=== PATIENT | male | born 1950 | race Caucasian/White ===

== ENCOUNTER 2016-11-19 10:54 | Inpatient (IN) | payer MEDICARE ==
[2016-11-19] MEDS ORDERED: Succinylcholine* 20 MG/ML 10 ML VIAL ONE (11:05)
[2016-11-19] MEDS ORDERED: Etomidate* 2 MG/ML 10 ML VIAL ONE (11:05)
[2016-11-19] MEDS ORDERED: NS 0.9% 1000 ML* 1,000 ML IV ONE (11:10)
[2016-11-19] MEDS ORDERED: NS 0.9% 1000 ML* 2,000 ML IV ONE (11:15)
[2016-11-19] MEDS ORDERED: Aspirin SUPP* 300 MG ONE (11:26)
[2016-11-19] MEDS ORDERED: Aspirin TAB* 325 MG NG TUBE ONE (11:26)
[2016-11-19 11:27] LABS: Hematocrit 42 % (42-52); Hemoglobin 12.2 g/dl (14.0-18.0); Mean Corpuscular HGB Conc 29 g/dl (31-36); Mean Corpuscular Hemoglobin 29 pg (27-31); Mean Corpuscular Volume 98 fL (80-94); Mean Platelet Volume 9 um3 (7.4-10.4); Red Blood Count 4.26 10^6/ul (4.0-5.4); Red Cell Distribution Width 17 % (10.5-15); White Blood Count 12.4 10^3/ul (3.5-10.8)
[2016-11-19] MEDS ORDERED: Heparin for STEMI(*) 5,000 UNITS/ML 1 ML VIAL IV ONE (11:28)
[2016-11-19] MEDS ORDERED: Clopidogrel TAB* 300 MG ONE (11:30)
[2016-11-19] MEDS ORDERED: Norepinephrine 16MCG/ML IVPRE* 4,000 MCG/250 ML BAG IV ONE (11:31)
[2016-11-19 11:34] LABS: Add Diff/Slide Review? Slide Review Added; Comments Flag Yes
[2016-11-19 11:35] LABS: ALT 17 U/L (7-52); AST 16 U/L (13-39); Albumin 4.1 g/dL (3.2-5.2); Alkaline Phosphatase 73 U/L (34-104); BUN/Creatinine Ratio 16.2 (8-20); Blood Urea Nitrogen 39 mg/dL (6-24); CO2 Carbon Dioxide 33 mmol/L (22-32); Calcium 8.7 mg/dL (8.6-10.3); Chloride 97 mmol/L (101-111); EGFR African American 34.7 (>60); Globulin 3.5 g/dL (2-4); Glucose 343 mg/dL (70-100); Magnesium 2.5 mg/dL (1.9-2.7); Sodium 135 mmol/L (133-145); Total Protein 7.6 g/dL (6.4-8.9)
[2016-11-19] MEDS ORDERED: Albuterol (2.5 MG) 0.5 % CONC 2.5 MG/0.5 ML NEB.SOLN (ICU and ED only) INH ONE (11:36)
[2016-11-19] MEDS ORDERED: Insulin REGULAR(*) 1 UNITS UNIT IV PUSH ONE (11:36)
[2016-11-19] MEDS ORDERED: Dextrose 25% PED SYRINGE 10ml IV ONE (11:36)
[2016-11-19 11:37] LABS: Anion Gap 5 mmol/L (2-11); Potassium 7.8 mmol/L (3.5-5.0)
[2016-11-19] MEDS ORDERED: Sodium Polystyrene ORAL.SOL* 15 GM/60 ML BTL NG TUBE ONE (11:39)
[2016-11-19] MEDS ORDERED: Levofloxacin 500 MG IVPREMIX(* 500 MG/100 ML BAG IVPB ONE (11:41)
[2016-11-19] MEDS ORDERED: fentaNYL* 50 MCG/ML 2 ML VIAL (100 MCG VIAL) ONE (11:42)
[2016-11-19] MEDS ORDERED: Midazolam* 1 MG/ML 5 ML VIAL (5 MG) ONE (11:42)
[2016-11-19 11:43] LABS: Troponin I 0.65 ng/mL (<0.04)
[2016-11-19] MEDS ORDERED: Heparin 2 UNITS/ML IVPREMIX* 1,000 ML IV ONE (11:43)
[2016-11-19] MEDS ORDERED: Iohexol 350 (CONTRAST) 200 ML MDV IV ONE (11:43)
[2016-11-19] MEDS ORDERED: Heparin(*) 1000 UNIT/ML 10 ML VIAL CATH LAB IV ONE (11:43)
[2016-11-19] MEDS ORDERED: VERAPAMIL 2.5 MG/ML 4 ML VIAL ONE (11:43)
[2016-11-19] MEDS ORDERED: Lidocaine 1% INJ* 10 MG/ML 30 ML SDV ONE (11:43)
[2016-11-19] MEDS ORDERED: nitroGLYCERIN DRIP* 0 ML ONE (11:43)
[2016-11-19] MEDS ORDERED: Iodixanol* (CONTRAST) 320 MG/ML 100 ML SDV ONE (11:45)
[2016-11-19] MEDS ORDERED: Dextrose 50% Syringe 50 ML* 25 GM/50 ML SYRINGE ONE (11:46)
[2016-11-19] MEDS ORDERED: Dextrose 50% Syringe 50 ML* 25 GM/50 ML SYRINGE IV PUSH ONE (11:50)
[2016-11-19 11:53] LABS: Acetaminophen < 15 mcg/mL; Alcohol < 10 mg/dL (<10); Salicylate < 2.50 mg/dL (<30)
[2016-11-19 12:03] LABS: TSH (Thyroid Stimulating Horm) 4.61 mcIU/mL (0.34-5.60)
--- NOTE | 2016-11-19 12:07 | RAD ---
INDICATION: Endotracheal tube confirmation. COMPARISON: Comparison is made with a prior chest x-ray study from December 11, 2013. TECHNIQUE: A portable view of the chest was obtained. FINDINGS: There is an endotracheal tube which projects over the midline. The catheter tip appears to be at the level of the clavicle heads. There is a nasogastric tube which is faintly visualized. The distal portion projects in the left upper quadrant. The heart is enlarged and unchanged from the prior exam. The lungs are underinflated and grossly clear. The right costophrenic angle is cut off on the film limiting the study. IMPRESSION: 1. STATUS POST INTUBATION AND NASOGASTRIC TUBE PLACEMENT. 2. CARDIOMEGALY, UNCHANGED.
[2016-11-19] MEDS ORDERED: Insulin REGULAR(*) 1 UNITS UNIT ONE (12:23)
[2016-11-19 12:33] LABS: Urine Bacteria Absent (Absent); Urine Bilirubin Negative (Negative); Urine Glucose 2+(150 mg/dL) (Negative); Urine Nitrite Negative (Negative)
--- NOTE | 2016-11-19 14:11 | ED ---
Smiley Lemus Auryana, scribed for Mason Rodriguez MD on 11/19/16 at 1115 . Respiratory - HPI Summary HPI Summary: 66 year old male BIBA unresponsive s/p witnessed fall . Per family, patient was sitting in chair A&O, when he started to foam at the mouth, fell, and became unresponsive. On EMS arrival, patient was not breathing but had a pulse and pinpoint pupils - given Narcan 2mg with no improvement. Per EMS, patient does have some spontaneous muscle movement. PMHx is significant for COPD, CAD/SD with stent placement 2005, DM, and chronic pain - opiate pain management but no history of stoke or seizure. Patient is a level 5 caveat due to unresponsiveness. - History of Current Complaint Stated Complaint: ABC ALERT Time Seen by Provider: 11/19/16 10:55 Hx Obtained From: Family/Dot Compliance Specialist, EMS Hx From Patient Unobtainable Due To: Other - Patient is a level 5 caveat due to unresponsiveness. Onset/Duration: Sudden Onset, Still Present Initial Severity: Severe Current Severity: Severe - Allergy/Home Medications Allergies/Adverse Reactions: Allergies Allergy/AdvReac Type Severity Reaction Status Date / Time Penicillins Allergy Unknown Unknown Verified 12/05/13 10:00 Reaction Details PMH/Surg Hx/FS Hx/Imm Hx Previously Healthy: No - Patient is a level 5 caveat due to unresponsiveness. Endocrine/Hematology History: Reports: Hx Diabetes Cardiovascular History: Reports: Hx Congestive Heart Failure, Hx Coronary Artery Disease, Hx Hypercholesterolemia, Hx Hypertension, Hx Myocardial Infarction, Hx Peripheral Vascular Disease, Other Cardiovascular Problems/ Disorders - CAD W/STENTS Respiratory History: Reports: Hx Chronic Obstructive Pulmonary Disease (COPD) Musculoskeletal History: Reports: Hx Arthritis Sensory History: Denies: Hx Contacts or Glasses Opthamlomology History: Denies: Hx Contacts or Glasses - Surgical History Surgery Procedure, Year, and Place: left knee replacement. stent placement s/p cardiac arrest 2013 Infectious Disease History: Denies: Traveled Outside the [place] in Last 30 Days - Family History Known Family History: Positive: Diabetes Family History: Patient is a level 5 caveat due to unresponsiveness. - Social History Alcohol Use: None Hx Substance Use: No Substance Use Type: Reports: None Hx Tobacco Use: Yes Smoking Status (MU): Former Smoker Review of Systems - ROS Summary Review of Systems Summary: Patient is a level 5 caveat due to unresponsiveness. Positive: Other - foaming at mouth Positive: Other - pinpoint pupils Positive: Other - apnea All Other Systems Reviewed And Are Negative: No Physical Exam - Summary Physical Exam Summary: Vital signs: reviewed General: Patient is abese male who is being baged. He is unresponsive. HEENT: Pupils are pin point. Patient has an LMA. Lungs: ecreased breath sound b/l CVS: S1 & S2 present. No murmurs appreciated. ABDOMEN: Soft, obese distended decreae BS. EXTREMITIES: Positive 1+ edema NEURO: Unresponsive SKIN: Dry and warm Triage Information Reviewed: Yes Vital Signs Reviewed: Yes Completion Of Physical Exam Limited Due To: Other - Patient is a level 5 caveat due to unresponsiveness. Diagnostics - Laboratory Lab Results: Lab Results 11/19/16 11/19/16 11/19/16 Range/Units 11:00 11:00 11:00 WBC 12.4 H (3.5-10.8) 10^3/ul RBC 4.26 (4.0-5.4) 10^6/ul Hgb 12.2 L (14.0-18.0) g/dl Hct 42 (42-52) % MCV 98 H (80-94) fL MCH 29 (27-31) pg MCHC 29 L (31-36) g/dl RDW 17 H (10.5-15) % Plt Count 249 (150-450) 10^3/ul MPV 9 (7.4-10.4) um3 Neut % (Auto) 92.4 H (38-83) % Lymph % (Auto) 4.2 L (25-47) % [place] % (Auto) 3.0 (1-9) % Eos % (Auto) 0.1 (0-6) % Baso % (Auto) 0.3 (0-2) % Absolute Neuts (auto) 11.5 H (1.5-7.7) 10^3/ul Absolute Lymphs (auto) 0.5 L (1.0-4.8) 10^3/ul Absolute Monos (auto) 0.4 (0-0.8) 10^3/ul Absolute Eos (auto) 0 (0-0.6) 10^3/ul Absolute Basos (auto) 0 (0-0.2) 10^3/ul Absolute Nucleated RBC 0.06 10^3/ul Nucleated RBC % 0.5 INR (Anticoag Therapy) (0.89-1.11) Sodium 135 (133-145) mmol/L Potassium 7.8 H* (3.5-5.0) mmol/L Chloride 97 L (101-111) mmol/L Carbon Dioxide 33 H (22-32) mmol/L Anion Gap 5 (2-11) mmol/L BUN 39 H (6-24) mg/dL Creatinine 2.41 H (0.67-1.17) mg/dL Est GFR ( Amer) 34.7 (>60) Est GFR (Non-Af Amer) 27.0 (>60) BUN/Creatinine Ratio 16.2 (8-20) Glucose 343 H (70-100) mg/dL Lactic Acid 2.8 H* (0.5-2.0) mmol/L Calcium 8.7 (8.6-10.3) mg/dL Magnesium 2.5 (1.9-2.7) mg/dL Total Bilirubin 0.30 (0.2-1.0) mg/dL AST 16 (13-39) U/L ALT 17 (7-52) U/L Alkaline Phosphatase 73 (34-104) U/L Troponin I 0.65 H* (<0.04) ng/mL Total Protein 7.6 (6.4-8.9) g/dL Albumin 4.1 (3.2-5.2) g/dL Globulin 3.5 (2-4) g/dL Albumin/Globulin Ratio 1.2 (1-3) TSH 4.61 (0.34-5.60) mcIU/mL Salicylates < 2.50 (<30) mg/dL Acetaminophen < 15 mcg/mL Serum Alcohol < 10 (<10) mg/dL 11/19/16 Range/Units 11:00 WBC (3.5-10.8) 10^3/ul RBC (4.0-5.4) 10^6/ul Hgb (14.0-18.0) g/dl Hct (42-52) % MCV (80-94) fL MCH (27-31) pg MCHC (31-36) g/dl RDW (10.5-15) % Plt Count (150-450) 10^3/ul MPV (7.4-10.4) um3 Neut % (Auto) (38-83) % Lymph % (Auto) (25-47) % [place] % (Auto) (1-9) % Eos % (Auto) (0-6) % Baso % (Auto) (0-2) % Absolute Neuts (auto) (1.5-7.7) 10^3/ul Absolute Lymphs (auto) (1.0-4.8) 10^3/ul Absolute Monos (auto) (0-0.8) 10^3/ul Absolute Eos (auto) (0-0.6) 10^3/ul Absolute Basos (auto) (0-0.2) 10^3/ul Absolute Nucleated RBC 10^3/ul Nucleated RBC % INR (Anticoag Therapy) 0.98 (0.89-1.11) Sodium (133-145) mmol/L Potassium (3.5-5.0) mmol/L Chloride (101-111) mmol/L Carbon Dioxide (22-32) mmol/L Anion Gap (2-11) mmol/L BUN (6-24) mg/dL Creatinine (0.67-1.17) mg/dL Est GFR ( Amer) (>60) Est GFR (Non-Af Amer) (>60) BUN/Creatinine Ratio (8-20) Glucose (70-100) mg/dL Lactic Acid (0.5-2.0) mmol/L Calcium (8.6-10.3) mg/dL Magnesium (1.9-2.7) mg/dL Total Bilirubin (0.2-1.0) mg/dL AST (13-39) U/L ALT (7-52) U/L Alkaline Phosphatase (34-104) U/L Troponin I (<0.04) ng/mL Total Protein (6.4-8.9) g/dL Albumin (3.2-5.2) g/dL Globulin (2-4) g/dL Albumin/Globulin Ratio (1-3) TSH (0.34-5.60) mcIU/mL Salicylates (<30) mg/dL Acetaminophen mcg/mL Serum Alcohol (<10) mg/dL Result Diagrams: 11/19/16 11:00 11/19/16 11:00 Lab Statement: Any lab studies that have been ordered have been reviewed, and results considered in the medical decision making process. - Radiology CXR Xray Interpretation: Positive (See Comments) - IMPRESSION: 1. STATUS POST INTUBATION AND NASOGASTRIC TUBE PLACEMENT. 2. CARDIOMEGALY, UNCHANGED. Radiology Interpretation Completed By: Radiologist - EKG 11:17 EKG Interpretation: ST elevation in lead III and aVf, with RBBB 11:18 EKG Interpretation: ST elevation in lead III, aVf, and V1,V2 and V3 with RBBB Disposition - Course Assessment/Plan: 66 year old male BIBA unresponsive s/p witnessed fall. Per family, patient was sitting in chair A&O, when he started to foam at the mouth, fell, and became unresponsive. On EMS arrival, patient was not breathing but had a pulse and pinpoint pupils - given Narcan 2mg with no improvement. Per EMS , patient does have some spontaneous muscle movement. PMHx is significant for COPD, CAD/SD with stent placement 2005, DM, and chronic pain - opiate pain management but no history of stoke or seizure. Patient is a level 5 caveat due to unresponsiveness. Test results show WBC of 12.4, potassium 7.8, BUN 39, creatinine 2.31, glucose 343, lactic 2.8 and troponin 0.65. UA shows trace ketones, 1+ blood, and is contaminated. In ED course, the patient arrived and was unresponsive and with an LMA 2. In the ED, patient was immediately placed on a cafeteria monitor and labs were drawn and IV access was initiated. Since the patient was unresponsive, we decided to intubate with an endotracheal tube. Intubation was successful on the 1st attempt and vocal cords were visualized. There were no complications. At this point, the blood pressure decreased to 70/ 40 and patient was given 2L of IV fluids, and patient was placed on norepinephrine drip. At this point, the blood pressure was 132/76. EKG shows STEMI in lead III and avF with reciprocal changes in leads V1, V2, and V3, and positive RBBB. At this point, we called a STEMI code and Dr. Anderson came to assess the patient. In the meantime, we treated hypokalemia with Calcium gluconate, dextrose, insulin, kayexalate, and albuterol. I ordered an ABG but it is still pending. At this point, Dr. Murray discussed the patient with Dr. Newby and decided to not bring patient to [employer] until his hypokalemia was corrected. Patient received ASA and heparin. At this point, the patient is a little bit more stable but is still critical. At this point, he will be brought to the ICU. - Differential Dx - Cardiopulmonary Differential Diagnoses - Cardiopulmonary: Acute Coronary, Myocardial Infarction - Diagnoses Provider Diagnoses: STEMI (ST elevation myocardial infarction), Hyperkalemia, Renal failure, Respiratory failure, Morbid obesity During the Visit The Following Alert/Code Occurred: STEMI - 11:20, ABC Alert - ON ARRIVAL - Physician Notifications Discussed Care Of Patient With: Cathy Saleem Time Discussed With Above Provider: 11:26 Instructed by Provider To: Will See In ED - present @ 11:20 - Critical Care Time Critical Care Time: 30-74 min - 70 Discharge - Discharge Plan Condition: Critical Disposition: ADMITTED TO [facility] The documentation as recorded by the Smiley barcenas Auryana accurately reflects the service I personally performed and the decisions made by Michael vitale Walter, MD.
[2016-11-19 14:32] LABS: BUN/Creatinine Ratio 18.6 (8-20); Calcium 7.8 mg/dL (8.6-10.3); EGFR African American 40.7 (>60); EGFR Non-African American 31.7 (>60)
[2016-11-19 14:35] LABS: Potassium 6.1 mmol/L (3.5-5.0)
[2016-11-19] MEDS ORDERED: Sodium Polystyrene ORAL.SOL* 15 GM/60 ML BTL G TUBE ONE (14:38)
[2016-11-19] MEDS ORDERED: Dextrose 50% Syringe 50 ML* 25 GM/50 ML SYRINGE IV PUSH PRN (14:40)
[2016-11-19] MEDS ORDERED: Insulin REGULAR(*) 1 UNITS UNIT SUBCUT ONE (14:44)
[2016-11-19] MEDS: fentaNYL* 50 MCG/ML 2 ML VIAL (100 MCG VIAL) IV SLOW PU PRN ×2 (14:49→23:17)
[2016-11-19 15:26] LABS: Troponin I 3.85 ng/mL (<0.04)
--- NOTE | 2016-11-19 15:45 | PN ---
Progress Note - Progress Note Date of Service: 11/19/16 - Critical care update Note: Pt is more alert, comfortable on vent EKG, troponiin repeated and discussed with dye machine tender Potassium still elevated, holding off on cath until potassium improves Vital Signs Temp Pulse Resp BP Pulse Ox 98.7 F 86 16 102/49 99 11/19/16 13:04 11/19/16 13:45 11/19/16 14:49 11/19/16 13:45 11/19/16 14:44 No change in exam Laboratory Last Values WBC 12.4 10^3/ul (3.5-10.8) H 11/19/16 11:00 RBC 4.26 10^6/ul (4.0-5.4) 11/19/16 11:00 Hgb 12.2 g/dl (14.0-18.0) L 11/19/16 11:00 Hct 42 % (42-52) 11/19/16 11:00 MCV 98 fL (80-94) H 11/19/16 11:00 MCH 29 pg (27-31) 11/19/16 11:00 MCHC 29 g/dl (31-36) L 11/19/16 11:00 RDW 17 % (10.5-15) H 11/19/16 11:00 Plt Count 249 10^3/ul (150-450) 11/19/16 11:00 MPV 9 um3 (7.4-10.4) 11/19/16 11:00 Neut % (Auto) 92.4 % (38-83) H 11/19/16 11:00 Lymph % (Auto) 4.2 % (25-47) L 11/19/16 11:00 [place] % (Auto) 3.0 % (1-9) 11/19/16 11:00 Eos % (Auto) 0.1 % (0-6) 11/19/16 11:00 Baso % (Auto) 0.3 % (0-2) 11/19/16 11:00 Absolute Neuts (auto) 11.5 10^3/ul (1.5-7.7) H 11/19/16 11:00 Absolute Lymphs (auto) 0.5 10^3/ul (1.0-4.8) L 11/19/16 11:00 Absolute Monos (auto) 0.4 10^3/ul (0-0.8) 11/19/16 11:00 Absolute Eos (auto) 0 10^3/ul (0-0.6) 11/19/16 11:00 Absolute Basos (auto) 0 10^3/ul (0-0.2) 11/19/16 11:00 Absolute Nucleated RBC 0.06 10^3/ul 11/19/16 11:00 Nucleated RBC % 0.5 11/19/16 11:00 INR (Anticoag Therapy) 0.98 (0.89-1.11) 11/19/16 11:00 Sodium 135 mmol/L (133-145) 11/19/16 13:30 Potassium 6.1 mmol/L (3.5-5.0) H* D 11/19/16 13:30 Chloride 99 mmol/L (101-111) L 11/19/16 13:30 Carbon Dioxide 31 mmol/L (22-32) 11/19/16 13:30 Anion Gap 5 mmol/L (2-11) 11/19/16 13:30 BUN 39 mg/dL (6-24) H 11/19/16 13:30 Creatinine 2.10 mg/dL (0.67-1.17) H 11/19/16 13:30 Est GFR ( Amer) 40.7 (>60) 11/19/16 13:30 Est GFR (Non-Af Amer) 31.7 (>60) 11/19/16 13:30 BUN/Creatinine Ratio 18.6 (8-20) 11/19/16 13:30 Glucose 334 mg/dL (70-100) H 11/19/16 13:30 Lactic Acid 2.9 mmol/L (0.5-2.0) H* 11/19/16 13:30 Calcium 7.8 mg/dL (8.6-10.3) L 11/19/16 13:30 Magnesium 2.5 mg/dL (1.9-2.7) 11/19/16 11:00 Total Bilirubin 0.30 mg/dL (0.2-1.0) 11/19/16 11:00 AST 16 U/L (13-39) 11/19/16 11:00 ALT 17 U/L (7-52) 11/19/16 11:00 Alkaline Phosphatase 73 U/L (34-104) 11/19/16 11:00 Ammonia 52 mol/L (16-53) 11/19/16 13:30 Troponin I 3.85 ng/mL (<0.04) H* 11/19/16 13:30 Total Protein 7.6 g/dL (6.4-8.9) 11/19/16 11:00 Albumin 4.1 g/dL (3.2-5.2) 11/19/16 11:00 Globulin 3.5 g/dL (2-4) 11/19/16 11:00 Albumin/Globulin Ratio 1.2 (1-3) 11/19/16 11:00 TSH 4.61 mcIU/mL (0.34-5.60) 11/19/16 11:00 Urine Color Lucy 11/19/16 12:15 Urine Appearance Cloudy 11/19/16 12:15 Urine pH 5.0 (5-9) 11/19/16 12:15 Ur Specific [place]coe 1.024 (1.010-1.030) 11/19/16 12:15 Urine Protein 2+(100 mg/dl) (Negative) H 11/19/16 12:15 Urine Ketones Trace (Negative) H 11/19/16 12:15 Urine Blood 1+ (Negative) H 11/19/16 12:15 Urine Nitrate Negative (Negative) 11/19/16 12:15 Urine Bilirubin Negative (Negative) 11/19/16 12:15 Urine Urobilinogen Negative (Negative) 11/19/16 12:15 Ur Leukocyte Esterase Negative (Negative) 11/19/16 12:15 Urine WBC (Auto) Absent (Absent) 11/19/16 12:15 Urine RBC (Auto) 1+(3-5/hpf) (Absent) H 11/19/16 12:15 Ur Squamous Epith Cells Present (Absent) H 11/19/16 12:15 Urine Bacteria Absent (Absent) 11/19/16 12:15 Hyaline Casts Present (Absent) H 11/19/16 12:15 Urine Glucose 2+(150 mg/dl) (Negative) H 11/19/16 12:15 Salicylates < 2.50 mg/dL (<30) 11/19/16 11:00 Acetaminophen < 15 mcg/mL 11/19/16 11:00 Serum Alcohol < 10 mg/dL (<10) 11/19/16 11:00 Received insulin, lactulose for potassium c/w IVF Needing Levophed PICC line inserted for IV access, body habitus is not amneable for central line placement Troponin high- combination of STEMI and hypotension Lactate elevated, likely from RF Will rpt potassium and troponins at 4:30 pm
--- NOTE | 2016-11-19 16:02 | RAD ---
INDICATION: Right PICC placement. COMPARISON: Comparison is made with a prior chest x-ray study of the same date from approximately 4 hours earlier. TECHNIQUE: A portable view of the chest was obtained. FINDINGS: Again note is made of an endotracheal tube which projects over the midline. The catheter tip projects just below the level of the clavicular heads. There is a nasogastric tube. The distal portion projects over the left upper quadrant. There is a PICC catheter which is faintly visualized on the right side. The catheter appears to extend at least to the right paratracheal region although is not well seen overlying the mediastinum. The lungs are underinflated and grossly clear. IMPRESSION: PICC CATHETER ON THE RIGHT SIDE DESCRIBED.
[2016-11-19] MEDS: NS 0.9% 1000 ML* 1,000 ML IV SCH (16:17)
[2016-11-19] MEDS: Insulin LISPRO* 1 UNITS UNIT SUBCUT SCH ×2 (16:58→20:10)
[2016-11-19] MEDS ORDERED: Norepinephrine 16MCG/ML IVPRE* 4,000 MCG/250 ML BAG IV SCH (17:00)
[2016-11-19 17:40] LABS: BUN/Creatinine Ratio 21.3 (8-20); Calcium 7.7 mg/dL (8.6-10.3); EGFR African American 46.3 (>60); Potassium 5.6 mmol/L (3.5-5.0)
[2016-11-19] MEDS ORDERED: Pantoprazole IV* 40 MG IV SCH (21:00)
[2016-11-19] MEDS ORDERED: Nystatin CREAM* 15 GM TUBE TOPICAL SCH (21:00)
--- NOTE | 2016-11-19 21:17 | HP ---
HISTORY AND PHYSICAL: DATE OF ADMISSION: 11/19/16 PRIMARY CARE PHYSICIAN: Dr. Preet Barriga. CHIEF COMPLAINT: Altered mental status, frothy phlegm. HISTORY OF PRESENT ILLNESS: The patient is a morbidly obese 66-year-old male with history of coronary artery disease, status post stent placement; hypertension; hypothyroidism; diabetes; chronic renal failure; obstructive sleep apnea, on positive airway pressure; history of cardiac arrest in 2013 secondary to hypercapnic respiratory failure; chronic hypoxemia, on 2 L O2; possible pickwickian syndrome. The patient was brought in to the emergency room by EMS for further evaluation of altered mental status. The patient was in normal state of health until this morning. The patient woke up and sat in a recliner at which time his family members have noticed altered mental status and also frothy phlegm coming from his mouth. EMS was called by family and he was brought in to the ED as at home cardiac arrest. He was a difficult intubation and EMS could not intubate him in field. He was intubated successfully in the emergency room. Further evaluation in the emergency room included EKG, which showed acute inferior wall [place] with ST-T wave changes in inferior leads. STEMI code was called. The patient was given aspirin, heparin in the ED. Cath could not be performed given hyperkalemia noted on laboratory workup with potassium of 7.8. The patient was given dextrose and insulin. He also received albuterol nebulizer. Kayexalate was also given through his OG tube. The patient is alert, awake. His blood pressure did drop a little bit post intubation, was given fluid boluses, and was started on Levophed. The patient's blood pressure improved and Levophed is being titrated down. Bedside echocardiogram by Dr. Saleem demonstrated good LV function, evidence of RV dilation suggestive of possible chronic cor pulmonale. His troponins were elevated at 0.65. His white count is slightly elevated at 12.4 with some left shift. He does have chronic skin changes in extremities and in the groin with possibility of cellulitis. His lactic acid is elevated at 2.8. He is being admitted to intensive care unit for close monitoring. PAST MEDICAL HISTORY: 1. Hypertension. 2. Hypothyroidism. 3. Morbid obesity with possible pickwickian syndrome. 4. Diabetes. 5. Chronic renal failure. 6. Obstructive sleep apnea, noncompliant with BiPAP. 7. Coronary artery disease, status post stent placement at [facility]. 8. Cardiac arrest in 2014 in hospital secondary to hypercapnic respiratory failure. 9. Chronic hypoxemia secondary to obesity hypoventilation, on 2 L O2. PAST SURGICAL HISTORY: Left TKA. MEDICATIONS: At home: 1. Gabapentin 100 mg 1 daily. 2. Metformin 1000 mg b.i.d. 3. Furosemide 40 mg daily. 4. Metoprolol 100 mg daily. 5. Levothyroxine 75 mcg 1 tablet daily. 6. Glipizide 10 mg 1 tablet b.i.d. 7. Oxybutynin extended release 10 mg 1 tablet daily. 8. Atorvastatin 80 mg 1 tablet daily. 9. Lisinopril 10 mg 1 tablet daily. 10. Spironolactone 25 mg half tablet daily. 11. Aspirin 81 mg 1 tablet daily. 12. Novolin 60 units in the morning and 60 units at night. 13. Regular Novolin 20 units 2 times a day. ALLERGIES: PENICILLIN causes swelling. FAMILY HISTORY: Mother with diabetes and end-stage renal disease, father with heart problems, and brother with Parkinson's disease. SOCIAL HISTORY: Former smoker with [id number] smoking history, quit 20 years ago, denies alcohol or drug abuse. REVIEW OF SYSTEMS: Limited due to intubated status, information obtained from the family and as per HPI. PHYSICAL EXAM: GENERAL: Morbidly obese male, alert, on vent, opens eyes spontaneously. VITAL SIGNS: Temperature 97.8, blood pressure 121/60, pulse rate 81 beats per minute, respiratory rate 16 per minute on vent, O2 sat 100% on 100% FiO2. HEENT: ET tube in place, OG in place. Pupils equal, reactive to light. NECK: JVD not distended. LUNGS: Diminished air entry at bases. No wheeze on auscultation. CARDIOVASCULAR: S1, S2 present, regular. ABDOMEN: Morbidly obese, bowel sounds diminished but present. NEUROLOGICAL: Evaluation is limited due to intubated status, opens eyes spontaneously, moves all extremities. MUSCULOSKELETAL: No cyanosis or clubbing, moves extremities spontaneously. SKIN: Chronic changes in lower extremities bilaterally, has evidence of erythema and possible cellulitis of skin under the abdomen and in the groin. DIAGNOSTIC STUDIES/LAB DATA: WBC count 12.4, hemoglobin 12.2, hematocrit 42, platelet count 249. INR 0.98. Sodium 135, potassium 7.8, chloride 97, bicarb 33, anion gap 5, BUN 39, creatinine 2.41, glucose 343, lactic acid 2.8. Troponin 0.65. LFTs within normal limits. Serum alcohol within normal limits. Chest x-ray post intubation was personally reviewed, ET tube at the level of clavicles about 3.5 cm above the level of josesito. EKG: Evidence of acute ST-T wave changes in inferior leads. ASSESSMENT: 66-year-old morbidly obese male with multiple comorbidities including coronary artery disease, status post stent placement with acute onset of altered mental status and unresponsiveness this a.m., likely secondary to acute myocardial infarction. 1. Acute ST-elevation myocardial infarction 2. Altered mental status. 3. Hypotension. 4. Respiratory failure requiring intubation. 5. Morbid obesity. 6. Elevated troponin secondary to acute ST-segment elevation myocardial infarction. 7. Leukocytosis, stress related versus infection. 8. Lactic acidosis secondary to hypotension and cardiogenic shock likely, cannot rule out infection. 9. History of obstructive sleep apnea, not being treated currently. The patient noncompliant. 10. Chronic renal failure secondary to diabetic nephropathy. 11. Diabetes. PLAN: 1. Cardiovascular: The patient with acute STEMI. STEMI code was called in ED. Catheterization on hold secondary to hyperkalemia. The patient to go for revascularization once hyperkalemia normalizes. The patient needed Levophed after intubation, have been tapering Levophed currently. We will maintain MAP above 65. Hold hypertensive medications, his metoprolol. The patient was heparinized. He also received aspirin and Plavix. We will hold his blood pressure medications. 2. Neurological: Altered mental status, likely secondary to acute STEMI, status post intubation for airway protection and hypoxemia. CT brain on hold given alternate explanation for altered mental status. We will monitor neurological status closely. 3. Respiratory: Status post intubation. Vent settings readjusted, we will titrate off O2 to maintain oxygen saturations around 95% given acute cardiac event. Continue with nebulization as needed p.r.n. 4. Renal: The patient with chronic renal failure, now with hyperkalemia. He is also on lisinopril and spironolactone, which are being held currently. We will repeat potassium. The patient has received treatment for hyperkalemia. Metformin is being held currently. We will monitor renal status closely. Wright was inserted for monitoring of urinary output. No other electrolyte abnormalities noted. 5. Hematological: Leukocytosis, unclear infection or stress response. Platelets within normal limits. Has chronic anemia with hemoglobin of 12.2. No need for transfusion at this time. We will monitor closely. 6. GI: The patient has OG tube inserted for medications. We will start feeds once the patient is stabilized. GI prophylaxis. 7. Infectious disease: White count and left shift; however, no source identified, could be cellulitis related. Received 1 dose of Levaquin. We will monitor closely and dose additionally if needed. 8. Supportive care as ordered. 9. Psychosocial: Family updated at bedside with the plan. Discussed with Dr. Saleem, ceramic artist, and emergency room physician, Dr. Rodriguez. Critical care time: 60 minutes [id number]/[facility] #: [id number] MTDD
[2016-11-20] MEDS: Insulin LISPRO* 1 UNITS UNIT SUBCUT SCH ×4 (00:46→12:35)
--- NOTE | 2016-11-20 01:02 | CONS ---
CC: Preet Barriga MD CARDIOLOGY CONSULTATION: DATE OF CONSULT: 11/19/16 REASON FOR CONSULTATION: Cardiac arrest, NSTEMI called by the ED. HISTORY OF PRESENT ILLNESS: Mr. Boo is a 66-year-old gentleman with known atherosclerotic heart disease, currently followed by Dr. Singh at the [facility] in [place]. It should be noted that history was obtained from the patient's and from the chart as the patient was not able to provide any history. According to the patient's , yesterday the patient was a little quiet and subdued, but otherwise seemed normal. This morning she says she typically wakes up before him, noted that he was in his chair and she thought he was sleeping and then later noted a coughing or gurgling sound went in and he was frothing at the mouth. She called 911. He did not respond to any verbal. On arrival to the emergency department, he appeared to be in respiratory arrest and was promptly intubated. Subsequent ECG was consistent with acute inferoposterior myocardial infarction with marked ST elevation in the inferior leads and marked ST depression in the anterior precordial leads. At the time of my arrival, the patient was intubated, receiving pressors, lying flat and nonresponsive. PAST MEDICAL HISTORY: CAD: with a history of stenting with Dr. Multani at [facility] in [place], 09/20/2005: LAD 40%, Cx OK, RCA dominant, complex 85% to 3.5 x 33 mm Cypher stent. Hypertension, diabetes, dyslipidemia, Hypothyroid morbid obesity, COPD with a history of CO2 retention, syncope (12/05/13), neuropathy, degenerative joint disease, cellulitis of the buttocks, lumbar compression fracture, history of cardiac arrest, diastolic congestive heart failure, right heart failure/cor pulmonale, obstructive sleep apnea. OUTPATIENT MEDICATIONS based on chart records: 1. Percocet p.r.n. 2. Metformin 1000 mg b.i.d. 3. Ditropan 20 mg a day. 4. Toprol XL 100 mg a day. 5. Synthroid 75 mcg a day. 6. Lispro and glargine insulin. 7. Lasix 40 mg a day. 8. Lipitor 80 mg a day. 9. Aspirin 81 mg a day. 10. Lisinopril 20 mg/day. 11. Spironolactone. 12. Vitamin D 13 Neurontin ALLERGIES: Include PENICILLIN. FAMILY HISTORY: Positive for coronary disease of his father. His mother had a history of diabetes. SOCIAL HISTORY: The patient is a former carlos, retired. He lives with his , a former smoker, distant past. No history of alcohol abuse. REVIEW OF SYSTEMS: Unable to be obtained as the patient is obtunded. See recent history provided by the patient's under the history of present illness. PHYSICAL EXAMINATION: On exam in the emergency department, the patient was intubated, lying flat on a stretcher, nonverbal, some spontaneous motions made. General Appearance: He is 5 feet 10 inches, weighs 400 pounds with a BMI of 57.4. Vital Signs: On arrival to the ED, blood pressure 102/54 with a pulse of 94. Following intubation, the patient's blood pressure decreased to 75/53. Pressors were initiated. At the time I saw him, blood pressure was 102 systolic to 134 systolic by the time I had completed my evaluation. Psychological exam and neurological exam unable to be performed. Skin: No cyanosis on the ventilator, evidence of significant yeast under the breasts bilaterally and in the groin. HEENT: Again intubated. Mucous membranes were moist. Neck: Very obese without obvious thyromegaly or lymphadenopathy. Bruits not heard. Palpable carotid pulses. Breath sounds diminished throughout. Very distant. Coronary: S1, S2 regular. I did not appreciate murmurs or rubs. Lungs underinflated. Abdomen: Obese. No evidence of tenderness. Bowel sounds were active. I did not appreciate hepatomegaly, although suboptimal exam. The groin not examined and the patient had fecal incontinence. Lower extremities are thickened and showed some edema and evidence of chronic venous stasis. DIAGNOSTIC STUDIES/LAB DATA: White count 12.4, hemoglobin 12.2, hematocrit 42, mean cell volume 98, platelets 249,000. INR 0.98. Initial electrolytes: Sodium 135, potassium 7.8, chloride 97, bicarb 33, BUN 39, creatinine 2.41, glucose 343, lactic acid 2.8, magnesium 2.5, ALT 17, AST 16. Troponin #1 of 0.65, troponin #2 of 3.85. TSH 4.61. Urinalysis: 2+ protein, 1+ blood, 1+ red cells, casts noted, 2+ glucose, esterase negative, nitrite negative. Toxicology screen negative for salicylates, acetaminophen or alcohol. The most recent lipid panel, her LDL was from 11/11/16 of 65. EKG #1 from 1107 shows normal sinus rhythm with a right bundle branch block 83 beats a minute with significant ST elevation in the inferior leads III and aVF and 3-[address] depression. The precordial leads V1 through V3 extending more mildly to V4. When compared with his most recent EKG in our system of 04/25/16, the right bundle branch block is old, but the ST change is new. EKG #2 done at 1410 today shows normal sinus rhythm, 84 beats a minute, QRS axis -60, normal AV conduction times, right bundle branch block and marked improvement in precordial and inferior leads in terms of ST elevation. Chest x-ray reported as PICC line noted. Bedside echocardiogram done with ER SonoSite echo showed small hyperdynamic left ventricle with no gross wall motion abnormalities. The right ventricle was markedly dilated and severely hypokinetic to akinetic (parasternal short axis view) no pericardial effusion noted. A full echocardiogram from 12/05/13 showed [id number] left ventricular hypertrophy with an ejection fraction of 55% to 60% and grossly normal wall motion and systolic function. The right ventricular function was mild to moderately reduced with [id number] right ventricular enlargement. PA pressure was estimated at 57 mmHg. Ascending aorta is dilated at 3.6 mm. IMPRESSION: In summary, Mr. Boo is a 66-year-old gentleman with chronic medical issues of diabetes, hypertension, dyslipidemia, morbid obesity, chronic obstructive pulmonary disease and degenerative arthritis who presented with loss of consciousness while seated at home with respiratory arrest and evidence of acute ST elevation in the inferoposterior hartley consistent with an inferoposterior myocardial infarction. Additionally, the patient was markedly hyperkalemic with a combination of Aldactone and lisinopril in the setting of renal insufficiency. Interventional Cardiology had been contacted and felt it was not safe to take the patient to the laborer drying department with the marked hyperkalemia. His hyperkalemia was treated promptly in the emergency department with insulin, glucose, calcium and Kayexalate. Acute cardiac issues include his known atherosclerotic heart disease and ST elevation. Because of his hypotension and cardiogenic shock, we cannot beta- block him. Heparinization was initiated as well as rectal aspirin. If he is able to get off the pressors with hydration, we may be able to resume beta- blockade. With the patient's evidence of cor pulmonale and chronic right heart failure, pressures are going to be difficult to manage. Despite his chronic RV dysfunction, consideration for acute pulmonary embolus should be made but heparinization will treat for this in addition to aiding in ischemic heart disease. I would continue with aggressive statin therapy. I agree with all supportive measures including intubation, optimization of electrolytes and overall metabolic status. Once stabilized, I think he will still need to present for cardiac catheterization, we can get a formal cardiac echo as well. Although Mr. Boo is only 66 years of age, with his multiple comorbidities he is a very high-risk patient. With evidence of more than one arrest and significant right heart failure, consideration should also be made for referral to Electrophysiology as he is at risk for ventricular tachycardia based on his right ventricular dysfunction. He may be a candidate for ICD based on his RV dysfunction even with his excellent LV function. Further recommendations will be made pending the patient's recovery and response post arrest and additional followup evaluation. [id number]/[facility] #: [id number] YAN
[2016-11-20] MEDS: NS 0.9% 1000 ML* 1,000 ML IV SCH (02:17)
[2016-11-20] MEDS: Chlorhexidine MOUTHWASH 0.12%* 15 ML UDC TOPICAL SCH ×5 (02:33→12:35)
[2016-11-20 05:50] LABS: Hematocrit 33 % (42-52); Hemoglobin 10.3 g/dl (14.0-18.0); Mean Corpuscular HGB Conc 32 g/dl (31-36); Mean Corpuscular Hemoglobin 29 pg (27-31); Mean Corpuscular Volume 92 fL (80-94); Mean Platelet Volume 8 um3 (7.4-10.4); Red Blood Count 3.54 10^6/ul (4.0-5.4); Red Cell Distribution Width 16 % (10.5-15); White Blood Count 7.4 10^3/ul (3.5-10.8)
[2016-11-20 06:06] LABS: BUN/Creatinine Ratio 28.7 (8-20); Calcium 7.8 mg/dL (8.6-10.3); EGFR African American 71.4 (>60); EGFR Non-African American 55.6 (>60); Potassium 4.2 mmol/L (3.5-5.0)
[2016-11-20 06:12] LABS: Troponin I 19.11 ng/mL (<0.04)
[2016-11-20] MEDS ORDERED: nitroGLYCERIN DRIP* 250 ML ONE (08:24)
[2016-11-20] MEDS ORDERED: Heparin(*) 1000 UNIT/ML 10 ML VIAL CATH LAB IV ONE (08:24)
[2016-11-20] MEDS ORDERED: VERAPAMIL 2.5 MG/ML 4 ML VIAL ONE (08:24)
[2016-11-20] MEDS ORDERED: fentaNYL* 50 MCG/ML 2 ML VIAL (100 MCG VIAL) ONE (08:25)
[2016-11-20] MEDS ORDERED: Heparin 2 UNITS/ML IVPREMIX* 3,000 ML IV ONE (08:25)
[2016-11-20] MEDS ORDERED: Lidocaine 1% INJ* 10 MG/ML 30 ML SDV ONE (08:25)
[2016-11-20] MEDS ORDERED: Midazolam* 1 MG/ML 5 ML VIAL (5 MG) ONE (08:25)
[2016-11-20] MEDS ORDERED: Bivalirudin(*) 250 MG VIAL ONE (08:26)
[2016-11-20] MEDS ORDERED: Iodixanol* (CONTRAST) 320 MG/ML 100 ML SDV ONE ×2 (08:27→09:52)
[2016-11-20] MEDS ORDERED: Atorvastatin* 80 MG TAB PO SCH (09:00)
[2016-11-20] MEDS ORDERED: Levothyroxine TAB* 75 MCG TAB PO SCH (09:00)
[2016-11-20] MEDS ORDERED: Nystatin TOP POWDER* 15 GM BTL TOPICAL SCH (09:00)
--- NOTE | 2016-11-20 09:07 | ECHO ---
Patient: CRISTIAN FOWLER [facility] Rec#: [id number] : 1950 Date: 11/20/2016 Age: 66y Height: 177.8 cm / 70.0 in Weight: 192.8 kg / 424.9 lbs Sex: M BSA: 2.9 Room#: ICU 8 Admit Date#: 11/19/2016 Referring: KINGSTON HUBBARD Reading: Cathy Saleem MD Remedial Masseur: Bella Gomez RN RDCS CC: Yanira Pizano MD Transthoracic Echocardiogram Indication: Respiratory arrest, Acute SC BP: 135/58 HR: 83 Rhythm: NSR with PVCs Findings History: CAD, PCI, DM, hypothyroidism, morbid obesity, COPD, right heart failure/cor pulmonale, diastolic CHF, cardiac arrest 2014, CRF Technical Comments: The study is technically limited due to patient body habitus. The study is technically limited due to the patient's history of COPD. The study was technically limited due to the patient's inability to lay in the left lateral decubitus position. The study is technically limited due to patient being intubated and on a ventilator.Completed at 0810. Left Ventricle: The left ventricular chamber size is normal. Mild concentric left ventricular hypertrophy is observed. Global left ventricular wall motion and contractility are within normal limits. There is normal left ventricular systolic function. The estimated ejection fraction is 55-60%. There is septal flattening of the interventricular septum consistent with right ventricular volume or pressure overload. Abnormal left ventricular diastolic function is observed. The patient was unable to perform a Valsalva maneuver. Left Atrium: The left atrium is mildly dilated. Right Ventricle: The right ventricle wall thickness is moderately increased. The right ventricle is moderate to severely dilated. The right ventricular global systolic function is moderately reduced. Right Atrium: The right atrium is moderately dilated. Aortic Valve: The aortic valve structure is not well visualized. There is no evidence of aortic regurgitation. There is no evidence of aortic stenosis. Mitral Valve: The mitral valve leaflets appear normal. There is no evidence of mitral regurgitation. There is no evidence of mitral stenosis. Tricuspid Valve: The tricuspid valve structure is not well visualized. There is no evidence of tricuspid valve regurgitation. Pulmonic Valve: The pulmonic valve structure is not well visualized. Pericardium: There is no significant pericardial effusion. A pericardial fat pad is visualized. Aorta: The ascending aorta is not well visualized. The aortic arch is not well visualized. There is mild dilatation of the aortic root. Pulmonary Artery: The main pulmonary artery is not well visualized. Venous: The venous system is not well visualized. The inferior vena cava is not visualized. Conclusions The study is technically limited due to patient body habitus. Mild concentric left ventricular hypertrophy is observed. Global left ventricular wall motion and contractility are within normal limits. The estimated ejection fraction is 55-60%. Abnormal diastolic filling pattern seen. The right ventricle is moderate to severely dilated, hypertrophied and hypokinetic consistant with cor pulmonale. All valves appear to function normally. Unable to estimate PA pressure. Compared with prior echo of 12/06/2013, LV function is stable, RV was moderately dilated, hypokineitc and RV septal flattening seen at that time as well. Measurements Name Value Normal Range RVIDd (AP) 2D 3.1 cm (0.9 - 2.6) RVDdMajor (2D) 6.6 cm (2.2 - 4.4) RAd ISD 4CH 6.3 cm (3.4 - 4.9) RA (A4C)W 4.3 cm (2.9 - 4.6) IVSd (2D) 1.3 cm (0.6 - 1) LVPWd (2D) 1.2 cm (0.6 - 1) LVIDd (2D) 5.3 cm (3.6 - 5.4) Aortic Annulus 2.8 cm (1.4 - 2.6) Ao root diameter (2D) 3.7 cm (2.1 - 3.5) LA dimension (AP) 2D 4.1 cm (2.3 - 3.8) LAd ISD 4CH 4.3 cm (2.9 - 5.3) LA ISD 4CH W 3.9 cm (2.5 - 4.5) Name Value Normal Range MV E-wave Vmax 0.59 m/sec - MV deceleration time 271 msec - MV A-wave Vmax 0.56 m/sec - MV E:A ratio 1 ratio - LV septal e' Vmax 0.05 m/sec - LV lateral e' Vmax 0.09 m/sec - LV E:e' septal ratio 11.8 ratio - LV E:e' lateral ratio 6.6 ratio - Name Value Normal Range AV Vmax 1.4 m/sec - AV VTI 25.2 cm - AV peak gradient 7.9 mmHg - AV mean gradient 5.4 mmHg - LVOT Vmax 0.89 m/sec - LVOT VTI 15.3 cm - LVOT peak gradient 3.1 mmHg - LVOT mean gradient 2.1 mmHg - Name Value Normal Range PV Vmax 0.86 m/sec -
--- NOTE | 2016-11-20 11:27 | PN ---
Progress Note - Progress Note Date of Service: 11/20/16 - [facility] transfer note Note: Transfer note Date of transfer: 11/20/16 Reason for transfer: Triple vessel disease with STEMI in need of cardiovascular revascularization intervention Primary care physician: Dr Preet Barriga Out pt Clerical Dentist Assistant: Dr Singh Inpatient consulting jewelry inspector: Dr Cathy Saleem wellness program coordinator; Dr Mellissa Anderson Summary: Pt is 66 y o morbidly obese male with prior history of CAD s/p stent in 2005 at [facility]- LAD 40%, Cx ok, RCA dominant, Pickwickian syndrome, SHERRELL/ OHS not compliant with PAP therapy, h/o hypercapnic resp failure and in hospital cardiac arrest in 2013. cor pulmonale secondary to hypoxia on chronic O2 who was BRBA after noticed AMS, gurgling around his mouth on 11/19/16. Enroute through EMS, he was spontaneously moving extremities however with resp distress with no seizure activity. LMA was placed and was subsequently intubated in ED. Pt was placed on mech ventilation. EKG in ED showed STEMI with marked ST elevation in inferior leads and ST depression in precordial leads. Interventional cardiology was contacted however immediate cardiac catherization could not be performed due to severe hyperkalemia. Pt was briefly hypotensive in ED post intubation, received fluid boluses x2 and then was started on Levophed. He was titrated off Levophed at one point, currently on small dose. Overnight he did well on vent support, demonstrated good mental status, was able to follow commands though full neuro exam was not possible no concern was noted regarding his mental status. His potassium normalized this morning, has received kayexalete, insulin and dextrose twice yesterday. His troponins remained elevated. He has required small dose of Levophed. His UO remained stable. He was taken for cardiac catherization this am which revealed 100% occlusion of distal RCA , 90% occlusion of Ostium and prox LAD including ostium of circumflex. Please refer to attached cath report for more details. Pt had rt radial approach, site appears clean with no bleeding. Pt had ECHO preoperatively which showed normal EF, evidence of cor pulmonale with RV mod to severely dilated, hypertrophied and hypokinetic. There was evidence of abnormal LV relaxation and evidence of pulm HTN. PMHx: CAD HTN DM Hypothyroidism Morbid obesity with OHA and hypoxia SHERRELL not compliant with PAP Cellulitis of buttocks Sharri of groin Diastolic CHF Pulm HTN Cor pulmonale Lumbar compression fracture Cardiac arrest in hosp in due to hypercapnic resp failure DJD Neuropathy Syncope 12/05/13 Dyslipidemia CRF PSHx: Left TKA Out pt meds: See attached H& P with list Meds at hospital Active Medications Generic Name Dose Route Start Last Admin Trade Name Freq PRN Reason Stop Dose Admin Atorvastatin Calcium 80 mg 11/20/16 09:00 11/20/16 08:29 Lipitor* PO 80 mg DAILY SANDY Administration Chlorhexidine Gluconate 15 ml 11/19/16 20:11 11/20/16 08:29 Peridex Mouth Wash 0.12%* TOPICAL 15 ml Q4H SANDY Administration Dextrose 12.5 gm 11/19/16 14:40 D50w Syringe 50 Ml* IV PUSH .FOR FS < 60 - SS PRN FS < 60 Fentanyl Citrate 50 mcg 11/19/16 14:26 11/19/16 23:17 Fentanyl* IV SLOW PU 50 mcg Q4H PRN Administration PAIN SCALE 1-5 Heparin Sodium (Porcine) 1 - 3 ml 11/19/16 18:00 11/20/16 06:00 Heparin Flush Picc/Ml/Cvc(*) FLUSH Not Given 0600,1800 [facility] Protocol Norepinephrine Bitartrate 4,000 mcg in 250 mls @ 1.875 mls/hr 11/19/16 11:31 11/19/16 11:37 Levophed 16 Mcg/Ml Premix Bag* IV 11/25/16 00:50 1.875 mls/hr ED ONCE ONE Administration 0.5 MCG/MIN Sodium Chloride 1,000 mls @ 100 mls/hr 11/19/16 15:45 11/20/16 02:17 Ns 0.9% 1000 Ml* IV 100 mls/hr PER RATE SANDY Administration Norepinephrine Bitartrate 4,000 mcg in 250 mls @ 22.5 mls/hr 11/19/16 17:00 Levophed 16 Mcg/Ml Premix Bag* IV PER RATE SANDY 6 MCG/MIN Insulin Human Lispro 2 units 11/19/16 16:00 11/20/16 08:29 Humalog* SUBCUT 3 unit FS Q4 ICU SANDY Administration Protocol Levothyroxine Sodium 75 mcg 11/20/16 09:00 11/20/16 08:29 Synthroid Tab* PO 75 mcg DAILY SANDY Administration Nystatin 1 applic 11/20/16 09:00 11/20/16 08:30 Nystatin Top Powder* TOPICAL 1 applic TID SANDY Administration Pantoprazole Sodium 40 mg 11/19/16 21:00 11/19/16 22:00 Protonix Iv* IV 40 mg Q24H SANDY Administration Allergies: Pencillin causes swelling of body FHx: Father- CAD, mother- DM Social Hx: Lives at home with , former carlos, retired, Quit smoking long time ago, no ETOH or drug abuse ROS: Unable to obtain given intubated status Physical exam: Gen: Opens eyes spontaneously and responds to stimuli, communicates with writing given intubated status Vital Signs Temp Pulse Resp BP Pulse Ox 98.7 F 88 18 134/65 93 11/20/16 08:00 11/20/16 10:45 11/20/16 10:54 11/20/16 10:45 11/20/16 10:45 Neuro: Alert, responds by nodding head HEENT: Anicteric, perrla, ETT + Cardiovascular: Regular, S1, S2+ Respiratory: Good ae b/l, decreased at bases Abdomen: Obese, BS+, NT Extremities: Moves spontaneously Skin: Bruises on upper arm from vascualr access,c hronic skin changes in LE, yeast inf with erythema in buttocks, lower abd and groin area Laboratory Results - last 24 hr 11/19/16 11/19/16 11/19/16 11:00 11:00 11:00 WBC 12.4 H RBC 4.26 Hgb 12.2 L Hct 42 MCV 98 H MCH 29 MCHC 29 L RDW 17 H Plt Count 249 MPV 9 Neut % (Auto) 92.4 H Lymph % (Auto) 4.2 L [place] % (Auto) 3.0 Eos % (Auto) 0.1 Baso % (Auto) 0.3 Absolute Neuts (auto) 11.5 H Absolute Lymphs (auto) 0.5 L Absolute Monos (auto) 0.4 Absolute Eos (auto) 0 Absolute Basos (auto) 0 Absolute Nucleated RBC 0.06 Nucleated RBC % 0.5 INR (Anticoag Therapy) Sodium 135 Potassium 7.8 H* Chloride 97 L Carbon Dioxide 33 H Anion Gap 5 BUN 39 H Creatinine 2.41 H Est GFR ( Amer) 34.7 Est GFR (Non-Af Amer) 27.0 BUN/Creatinine Ratio 16.2 Glucose 343 H POC Glucose (mg/dL) Lactic Acid 2.8 H* Calcium 8.7 Magnesium 2.5 Total Bilirubin 0.30 AST 16 ALT 17 Alkaline Phosphatase 73 Ammonia Troponin I 0.65 H* Total Protein 7.6 Albumin 4.1 Globulin 3.5 Albumin/Globulin Ratio 1.2 TSH 4.61 Urine Color Urine Appearance Urine pH Ur Specific [place] Urine Protein Urine Ketones Urine Blood Urine Nitrate Urine Bilirubin Urine Urobilinogen Ur Leukocyte Esterase Urine WBC (Auto) Urine RBC (Auto) Ur Squamous Epith Cells Urine Bacteria Hyaline Casts Urine Glucose Salicylates < 2.50 Acetaminophen < 15 Serum Alcohol < 10 11/19/16 11/19/16 11/19/16 11:00 12:15 12:33 WBC RBC Hgb Hct MCV MCH MCHC RDW Plt Count MPV Neut % (Auto) Lymph % (Auto) [place] % (Auto) Eos % (Auto) Baso % (Auto) Absolute Neuts (auto) Absolute Lymphs (auto) Absolute Monos (auto) Absolute Eos (auto) Absolute Basos (auto) Absolute Nucleated RBC Nucleated RBC % INR (Anticoag Therapy) 0.98 Sodium Potassium Chloride Carbon Dioxide Anion Gap BUN Creatinine Est GFR ( Amer) Est GFR (Non-Af Amer) BUN/Creatinine Ratio Glucose POC Glucose (mg/dL) 357 H Lactic Acid Calcium Magnesium Total Bilirubin AST ALT Alkaline Phosphatase Ammonia Troponin I Total Protein Albumin Globulin Albumin/Globulin Ratio TSH Urine Color Lucy Urine Appearance Cloudy Urine pH 5.0 Ur Specific [place] 1.024 Urine Protein 2+(100 mg/dl) H Urine Ketones Trace H Urine Blood 1+ H Urine Nitrate Negative Urine Bilirubin Negative Urine Urobilinogen Negative Ur Leukocyte Esterase Negative Urine WBC (Auto) Absent Urine RBC (Auto) 1+(3-5/hpf) H Ur Squamous Epith Cells Present H Urine Bacteria Absent Hyaline Casts Present H Urine Glucose 2+(150 mg/dl) H Salicylates Acetaminophen Serum Alcohol 11/19/16 11/19/16 11/19/16 13:30 13:30 13:30 WBC RBC Hgb Hct MCV MCH MCHC RDW Plt Count MPV Neut % (Auto) Lymph % (Auto) [place] % (Auto) Eos % (Auto) Baso % (Auto) Absolute Neuts (auto) Absolute Lymphs (auto) Absolute Monos (auto) Absolute Eos (auto) Absolute Basos (auto) Absolute Nucleated RBC Nucleated RBC % INR (Anticoag Therapy) Sodium 135 Potassium 6.1 H* D Chloride 99 L Carbon Dioxide 31 Anion Gap 5 BUN 39 H Creatinine 2.10 H Est GFR ( Amer) 40.7 Est GFR (Non-Af Amer) 31.7 BUN/Creatinine Ratio 18.6 Glucose 334 H POC Glucose (mg/dL) Lactic Acid 2.9 H* Calcium 7.8 L Magnesium Total Bilirubin AST ALT Alkaline Phosphatase Ammonia 52 Troponin I 3.85 H* Total Protein Albumin Globulin Albumin/Globulin Ratio TSH Urine Color Urine Appearance Urine pH Ur Specific [place] Urine Protein Urine Ketones Urine Blood Urine Nitrate Urine Bilirubin Urine Urobilinogen Ur Leukocyte Esterase Urine WBC (Auto) Urine RBC (Auto) Ur Squamous Epith Cells Urine Bacteria Hyaline Casts Urine Glucose Salicylates Acetaminophen Serum Alcohol 11/19/16 11/19/16 11/19/16 15:30 16:21 16:48 WBC RBC Hgb Hct MCV MCH MCHC RDW Plt Count MPV Neut % (Auto) Lymph % (Auto) [place] % (Auto) Eos % (Auto) Baso % (Auto) Absolute Neuts (auto) Absolute Lymphs (auto) Absolute Monos (auto) Absolute Eos (auto) Absolute Basos (auto) Absolute Nucleated RBC Nucleated RBC % INR (Anticoag Therapy) Sodium 138 Potassium 5.6 H Chloride 102 Carbon Dioxide 31 Anion Gap 5 BUN 40 H Creatinine 1.88 H Est GFR ( Amer) 46.3 Est GFR (Non-Af Amer) 36.0 BUN/Creatinine Ratio 21.3 H Glucose 290 H POC Glucose (mg/dL) 329 H Lactic Acid Calcium 7.7 L Magnesium Total Bilirubin AST ALT Alkaline Phosphatase Ammonia Troponin I 11.40 H* Total Protein Albumin Globulin Albumin/Globulin Ratio TSH Urine Color Urine Appearance Urine pH Ur Specific [place] Urine Protein Urine Ketones Urine Blood Urine Nitrate Urine Bilirubin Urine Urobilinogen Ur Leukocyte Esterase Urine WBC (Auto) Urine RBC (Auto) Ur Squamous Epith Cells Urine Bacteria Hyaline Casts Urine Glucose Salicylates Acetaminophen Serum Alcohol 11/19/16 11/19/16 11/19/16 18:30 19:59 22:10 WBC RBC Hgb Hct MCV MCH MCHC RDW Plt Count MPV Neut % (Auto) Lymph % (Auto) [place] % (Auto) Eos % (Auto) Baso % (Auto) Absolute Neuts (auto) Absolute Lymphs (auto) Absolute Monos (auto) Absolute Eos (auto) Absolute Basos (auto) Absolute Nucleated RBC Nucleated RBC % INR (Anticoag Therapy) Sodium Potassium Chloride Carbon Dioxide Anion Gap BUN Creatinine Est GFR ( Amer) Est GFR (Non-Af Amer) BUN/Creatinine Ratio Glucose POC Glucose (mg/dL) 238 H Lactic Acid 1.4 Calcium Magnesium Total Bilirubin AST ALT Alkaline Phosphatase Ammonia Troponin I 19.53 H* Total Protein Albumin Globulin Albumin/Globulin Ratio TSH Urine Color Urine Appearance Urine pH Ur Specific [place] Urine Protein Urine Ketones Urine Blood Urine Nitrate Urine Bilirubin Urine Urobilinogen Ur Leukocyte Esterase Urine WBC (Auto) Urine RBC (Auto) Ur Squamous Epith Cells Urine Bacteria Hyaline Casts Urine Glucose Salicylates Acetaminophen Serum Alcohol 11/19/16 11/20/16 11/20/16 23:35 00:35 03:49 WBC RBC Hgb Hct MCV MCH MCHC RDW Plt Count MPV Neut % (Auto) Lymph % (Auto) [place] % (Auto) Eos % (Auto) Baso % (Auto) Absolute Neuts (auto) Absolute Lymphs (auto) Absolute Monos (auto) Absolute Eos (auto) Absolute Basos (auto) Absolute Nucleated RBC Nucleated RBC % INR (Anticoag Therapy) Sodium Potassium Chloride Carbon Dioxide Anion Gap BUN Creatinine Est GFR ( Amer) Est GFR (Non-Af Amer) BUN/Creatinine Ratio Glucose POC Glucose (mg/dL) 189 H 191 H Lactic Acid Calcium Magnesium Total Bilirubin AST ALT Alkaline Phosphatase Ammonia Troponin I 25.00 H* Total Protein Albumin Globulin Albumin/Globulin Ratio TSH Urine Color Urine Appearance Urine pH Ur Specific [place] Urine Protein Urine Ketones Urine Blood Urine Nitrate Urine Bilirubin Urine Urobilinogen Ur Leukocyte Esterase Urine WBC (Auto) Urine RBC (Auto) Ur Squamous Epith Cells Urine Bacteria Hyaline Casts Urine Glucose Salicylates Acetaminophen Serum Alcohol 11/20/16 11/20/16 11/20/16 05:30 05:30 08:20 WBC 7.4 RBC 3.54 L Hgb 10.3 L Hct 33 L MCV 92 MCH 29 MCHC 32 RDW 16 H Plt Count 164 MPV 8 Neut % (Auto) 87.6 H Lymph % (Auto) 4.6 L [place] % (Auto) 7.7 Eos % (Auto) 0 Baso % (Auto) 0.1 Absolute Neuts (auto) 6.5 Absolute Lymphs (auto) 0.3 L Absolute Monos (auto) 0.6 Absolute Eos (auto) 0 Absolute Basos (auto) 0 Absolute Nucleated RBC 0.01 Nucleated RBC % 0.2 INR (Anticoag Therapy) Sodium 140 Potassium 4.2 Chloride 104 Carbon Dioxide 33 H Anion Gap 3 BUN 37 H Creatinine 1.29 H Est GFR ( Amer) 71.4 Est GFR (Non-Af Amer) 55.6 BUN/Creatinine Ratio 28.7 H Glucose 168 H POC Glucose (mg/dL) 160 H Lactic Acid Calcium 7.8 L Magnesium Total Bilirubin AST ALT Alkaline Phosphatase Ammonia Troponin I 19.11 H* Total Protein Albumin Globulin Albumin/Globulin Ratio TSH Urine Color Urine Appearance Urine pH Ur Specific [place] Urine Protein Urine Ketones Urine Blood Urine Nitrate Urine Bilirubin Urine Urobilinogen Ur Leukocyte Esterase Urine WBC (Auto) Urine RBC (Auto) Ur Squamous Epith Cells Urine Bacteria Hyaline Casts Urine Glucose Salicylates Acetaminophen Serum Alcohol Cardiac cath results: Report attached, summarized in HPI ECHo; As described in HPI Transfer Summary: Morbidly obese male with prior CAD s/p stent 2005 at [facility] for RCA dominant lesion admitted with AMS found to have acute STEMI. Refer to admission history and physical for details regarding presentation and ED course. Catheterization couldnot be performed until this am due to hyperkalemia from Acute on chronic renal failure likely due to meds(pt was on Lisinopril and Spironolactone). Hyperkalemia was managed appropriately with potassum level normalizing this am Pt subsequently underwent diagnostic cardiac catheterization this am which revelaed completely occluded RCA, 90% occlusion of prox LAD and circumflex. Given significant disease decision was made to transfer patient to tertiary care facility with cardiothoracic surgical services. Patient was accepted by Dr Ky Padilla at [facility]. Catheterization was performed by mining consultant Dr Mellissa Anderson. He was seen in consultation by Dr Saleem who has communicated with accepting physician and coordinated the transfer. Patient is hemodynamically stable at time of transfer, tapered off Levophed. He remains intubated and likely will be extubated in near future after definitive intervention for revascularization could be perfromed. Patient is comfortable currenlty on ventilator and Fentanyl prn will be utilized as needed during transportation. His creatinine has been trending down since admission and hyperkalemia is resolved. GEENA-inh and Spironolactone are being held given hypotension, RF and hyperkalemia. Dr Saleem has communicated with accepting jewelry inspector Plan was discussed with family and are agreeable
--- NOTE | 2016-11-20 12:41 | PN ---
Subjective Date of Service: 11/20/16 - CC: s/p arrest, STEMI Interval History: The patient is intubated, alert. No chest pain. Medications Active Medications: Atorvastatin Calcium (Lipitor*) 80 mg PO DAILY [facility] Last Admin: 11/20/16 08:29 Dose: 80 mg Chlorhexidine Gluconate (Peridex Mouth Wash 0.12%*) 15 ml TOPICAL Q4H [facility] Last Admin: 11/20/16 08:29 Dose: 15 ml Dextrose (D50w Syringe 50 Ml*) 12.5 gm IV PUSH .FOR FS < 60 - SS PRN PRN Reason: FS < 60 Fentanyl Citrate (Fentanyl*) 50 mcg IV SLOW PU Q4H PRN PRN Reason: PAIN SCALE 1-5 Last Admin: 11/19/16 23:17 Dose: 50 mcg Heparin Sodium (Porcine) (Heparin Flush Picc/Ml/Cvc(*)) 1 - 3 ml FLUSH 0600, 1800 [facility] PRN Reason: Protocol Last Admin: 11/20/16 06:00 Dose: Not Given Norepinephrine Bitartrate (Levophed 16 Mcg/Ml Premix Bag*) 4,000 mcg in 250 mls @ 1.875 mls/hr IV ED ONCE ONE PRN Reason: 0.5 MCG/MIN Stop: 11/25/16 00:50 Last Admin: 11/19/16 11:37 Dose: 1.875 mls/hr Sodium Chloride (Ns 0.9% 1000 Ml*) 1,000 mls @ 100 mls/hr IV PER RATE [facility] Last Admin: 11/20/16 02:17 Dose: 100 mls/hr Norepinephrine Bitartrate (Levophed 16 Mcg/Ml Premix Bag*) 4,000 mcg in 250 mls @ 22.5 mls/hr IV PER RATE [facility] PRN Reason: 6 MCG/MIN Insulin Human Lispro (Humalog*) 2 units SUBCUT FS Q4 ICU [facility] PRN Reason: Protocol Last Admin: 11/20/16 08:29 Dose: 3 unit Levothyroxine Sodium (Synthroid Tab*) 75 mcg PO DAILY [facility] Last Admin: 11/20/16 08:29 Dose: 75 mcg Nystatin (Nystatin Top Powder*) 1 applic TOPICAL TID [facility] Last Admin: 11/20/16 08:30 Dose: 1 applic Pantoprazole Sodium (Protonix Iv*) 40 mg IV Q24H [facility]ANDY Last Admin: 11/19/16 22:00 Dose: 40 mg Objective Vital Signs: Temp Pulse Resp BP Pulse Ox 98.8 F 81 18 127/62 95 11/20/16 11:00 11/20/16 11:15 11/20/16 10:54 11/20/16 11:15 11/20/16 11:15 Oxygen Devices in Use Now: - - Ventilated Appearance: morbidly obese male, intubated, seated at 30 degrees, appears comfortable. Eyes: No Scleral Icterus, PERRLA Ears/Nose/Mouth/Throat: Mucous Membranes Moist Neck: Trachea Midline - thick, no gross abnormalities Respiratory: Symmetrical Chest Expansion and Respiratory Effort - good air movement on the ventilator anteriorly Cardiovascular: RRR - no murmers. Abdominal: - - active bowel sounds, non tender, overweight. Extremities: - - thick, mild edema Lines/Tubes/Other Access: Clean, Dry and Intact PICC Line Laboratory Results: 11/20/16 05:30 11/20/16 05:30 INR (Anticoag Therapy) 0.98 (0.89-1.11) 11/19/16 11:00 Total Bilirubin 0.30 mg/dL (0.2-1.0) 11/19/16 11:00 AST 16 U/L (13-39) 11/19/16 11:00 ALT 17 U/L (7-52) 11/19/16 11:00 Alkaline Phosphatase 73 U/L (34-104) 11/19/16 11:00 Total Protein 7.6 g/dL (6.4-8.9) 11/19/16 11:00 Albumin 4.1 g/dL (3.2-5.2) 11/19/16 11:00 Globulin 3.5 g/dL (2-4) 11/19/16 11:00 Albumin/Globulin Ratio 1.2 (1-3) 11/19/16 11:00 TSH 4.61 mcIU/mL (0.34-5.60) 11/19/16 11:00 11/19/16 11/19/16 11/19/16 13:30 15:30 18:30 Troponin I 3.85 H* 11.40 H* 19.53 H* 11/19/16 11/20/16 23:35 05:30 Troponin I 25.00 H* 19.11 H* Diagnostic Imaging: Cardiac catheterization: 90-95% proximal LAD Occluded RCA at ostium. Calcified vessels. Per report from crucible furnace tender, proximal LAD lesion extends to Circ. ECHO: Mild LVH, LVEF 60%, Severe RVE and hypokinesis. Good valve function. EKG Data: Monitor: NSR, RBBB Assessment/Plan 66 yo male with DM, HTN, Chol, morbid obesity, COPD, SHERRELL 24 hours post arrest with marked hyperkalemia (7.8), STEMI (posterior on ECG), no spontaneous respirations, required pressors post intubation. Medical stabilization yesterday. Cardiac catheterization able to be perfomed today and revealed severe 2 V CAD as above with recommendations for CABG. The patient is to be transferred for CABG, [facility] after discussion with the family. Dr. Enrique Hamilton has accepted the patient in transfer. The patient will remain intubated on current medications for transfer. Very high risk patient overall. Counseling and/or Coordination of Care Minutes: > 1 hour spent with the patient , counsiling family, coord care, transfer
[2016-11-20] MEDS: fentaNYL* 50 MCG/ML 2 ML VIAL (100 MCG VIAL) IV SLOW PU PRN (13:08)
[2016-11-20 17:48] VITALS: BP 131/64
--- NOTE | 2016-11-21 06:54 | CATH ---
CC: Dr. Gandara* ANGIOGRAM REPORT: DATE OF PROCEDURE: 11/20/16 - ROOM #ICU-08 INDICATIONS: Mr. Boo is a 66-year-old morbidly obese male who was admitted yesterday after what appears to be a cardiac arrest. He was intubated and he was hypotensive, treated with pressor agents. It turned out serum potassium was 7.6. Patient was treated using insulin and glucose and the serum potassium this morning was 4.3, was then referred for angiogram, question angioplasty because of elevated troponin of 21. EKG showed sinus rhythm with complete right bundle branch block pattern , ST elevation in V1, V2, and V3 and II, III, and aVF. Left heart catheterization, selective coronary angiography performed by Dr. Anderson. Premedication, 1 mg Versed IV. The patient is intubated, awake. DESCRIPTION OF PROCEDURE: The right radial artery was cannulated using a 6- Armenian long Terumo sheath. Local heparin and verapamil was administered. A 5- Armenian TIG 4.5 cm was used for angiography into the left coronary artery. The left ventricle was entered. Left ventricle end-diastolic pressure was recorded. The right coronary artery was visualized using a 5-Armenian AR2. The catheter and sheath was removed. Large long TR band was applied. The patient tolerated the procedure well. CONCLUSION: 1. Left ventricle end-diastolic pressure elevated at 24 mmHg. No gradient across the aortic valve. Fluoroscopy, calcification and stent in the right coronary artery was seen. 2. Cine-angiography. The left main coronary artery demonstrated 70% narrowing in the distal left main, calcified and following the ostium of the LAD, there was another 60% to 75% narrowing in the proximal LAD. The remaining of the LAD shows minimal irregularities. The diagonal branch has diffuse irregularities. 3. The left circumflex coronary artery appears to have involvement of the calcification of the distal left main and ostium, LAD and its ostium. The mid and distal circumflex is normal. The first marginal branch is small, second marginal branch is decent. 4. The right coronary artery is totally occluded at the ostium. A conus branch was seen. Images of the previously deployed stent in the proximal, mid, and distal right coronary artery was seen. CONCLUSION: 1. Elevated left ventricular end-diastolic pressure at rest. 2. Critical stenosis involving the ostium and proximal LAD involving the distal left main, with heavy calcification in the ostium of the circumflex. 3. Total occlusion of the ostium of the right coronary artery. [id number]/[facility] #: [id number] YAN
--- NOTE | 2016-11-22 14:02 | DS ---
CC: Dr. Preet Barriga; Dr. Singh DISCHARGE SUMMARY: DATE OF ADMISSION: 11/19/16 DATE OF DISCHARGE: 11/20/16 PRIMARY CARE PHYSICIAN: Dr. Preet Barriga. OUTPATIENT CANE CUTTER: Dr. Singh. INPATIENT CANE CUTTER: Dr. Cathy Saleem. INSTRUMENT MECHANICS SUPERVISOR: Dr. Mellissa Anderson. BRIEF SUMMARY OF VISIT: The patient is a 66-year-old morbidly obese male with history of CAD, statu s post stent in [address] [facility]; Pickwickian syndrome; obstructive sleep apnea and OHS, not com pliant with PAP therapy; cor pulmonale; chronic hypoxemia, who was brought in to ED on 11/19/16, for evaluation of altered mental status. The patient was found to be in STEMI on arrival in the emerge ncy room. Please refer to admission history and physical for further information. The patient's ca rdiac cath could not be performed until the next morning given hyperkalemia. The patient's hyperkal emia was managed adequately and he underwent cardiac cath subsequently, which revealed severe 2-vess el disease with 100% occlusion of RCA and 90% occlusion of circumflex of left coronary artery. The patient was intubated in the emergency room for respiratory failure. Given significant coronary art mechelle disease, decision was made to transfer the patient to tertiary facility for cardiovascular surge ry for revascularization. The patient was alert, awake on ventilator at the time of transportation. He was transferred through ambulance to the accepting facility. For further details, please refer to transfer note dictated by me on the date of transfer. [id number]/[facility] #: [id number]
== END 2016-11-20 13:00 | disposition short-term general hospital (02) | DRG 280 ==
LOC: ED 10:54 → ICU 11:07
PROVIDERS: ADMIT Internal Medicine; ATTEND Internal Medicine
PROC: 0BH17EZ Insertion of Endotracheal Airway into Trachea, Via Natural or Artificial Opening (ICD-10-PCS; principal; 2016-11-19)
PROC: 5A1935Z Respiratory Ventilation, Less than 24 Consecutive Hours (ICD-10-PCS; 2016-11-19)
PROC: 05H533Z Insertion of Infusion Device into Right Subclavian Vein, Percutaneous Approach (ICD-10-PCS; 2016-11-19)
PROC: 4A023N7 Measurement of Cardiac Sampling and Pressure, Left Heart, Percutaneous Approach (ICD-10-PCS; 2016-11-19)
PROC: B2111ZZ Fluoroscopy of Multiple Coronary Arteries using Low Osmolar Contrast (ICD-10-PCS; 2016-11-19)
DX: I21.11 ST elevation (STEMI) myocardial infarction involving right coronary artery (principal); J96.91 Respiratory failure, unspecified with hypoxia; N17.9 Acute kidney failure, unspecified; I95.9 Hypotension, unspecified; E87.2 Acidosis; I13.0 Hypertensive heart and chronic kidney disease with heart failure and stage 1 through stage 4 chronic kidney disease, or unspecified chronic kidney disease; E11.22 Type 2 diabetes mellitus with diabetic chronic kidney disease; I50.32 Chronic diastolic (congestive) heart failure; E66.2 Morbid (severe) obesity with alveolar hypoventilation; Z68.43 Body mass index [BMI] 50.0-59.9, adult; E11.51 Type 2 diabetes mellitus with diabetic peripheral angiopathy without gangrene; J44.9 Chronic obstructive pulmonary disease, unspecified; I25.10 Atherosclerotic heart disease of native coronary artery without angina pectoris; I25.2 Old myocardial infarction; Z95.5 Presence of coronary angioplasty implant and graft; G89.29 Other chronic pain; Z88.0 Allergy status to penicillin; E78.5 Hyperlipidemia, unspecified; M19.90 Unspecified osteoarthritis, unspecified site; Z96.652 Presence of left artificial knee joint; Z83.3 Family history of diabetes mellitus; Z87.891 Personal history of nicotine dependence; E03.9 Hypothyroidism, unspecified; N18.9 Chronic kidney disease, unspecified; E87.5 Hyperkalemia; Z79.4 Long term (current) use of insulin; Z79.82 Long term (current) use of aspirin; Z84.1 Family history of disorders of kidney and ureter; Z82.49 Family history of ischemic heart disease and other diseases of the circulatory system; Z81.8 Family history of other mental and behavioral disorders; D72.829 Elevated white blood cell count, unspecified; I27.2 Other secondary pulmonary hypertension; E11.40 Type 2 diabetes mellitus with diabetic neuropathy, unspecified; T46.4X5A Adverse effect of angiotensin-converting-enzyme inhibitors, initial encounter; T50.0X5A Adverse effect of mineralocorticoids and their antagonists, initial encounter; Z78.1 Physical restraint status
CPT/HCPCS: 36415; 71010; 80048; 80053; 80320; 80329; 81003; 81015; 82140; 83605; 83735; 84443; 84484; 85025; 85610; 87040; 87641; 92950; 93005; 93306; 93458; 94002; 94003; 94760; 99156; A9270-GY; C1769; G0480; J0330; J1644; J1956; J2001; J2250; J3010; J7611